=== PATIENT | male | born 1965 | race Caucasian/White ===

== ENCOUNTER 2018-01-08 12:37 | Outpatient (CLI) | payer BC | END 2018-01-08 12:38 | disposition home or self-care (01) | LOC: BICULT 12:37 | PROVIDERS: ATTEND Internal Medicine Gastroenterology | DX: R10.13 Epigastric pain (principal); R30.0 Dysuria; Z90.49 Acquired absence of other specified parts of digestive tract | CPT/HCPCS: 36415; 76705; 80053; 81001; 82150; 82248; 83690; 85025; 87086 ==

== ENCOUNTER 2018-01-09 07:45 | Day surgery (SDC) | payer BC ==
[2018-01-08 17:05] VITALS: BMI 20.5
[2018-01-09] MEDS ORDERED: cefTRIAXone\\ROCEPHIN 1 GM VIAL ONE (09:09)
[2018-01-09] MEDS ORDERED: Sodium Chloride 0.9% 100 ML ONE (09:10)
[2018-01-09] MEDS ORDERED: Indomethacin 50 MG SUPP PR SCH (09:15)
[2018-01-09] MEDS ORDERED: cefTRIAXone\\ROCEPHIN 1 GM in Sodium Chloride 0.9% 100 ML IVPB SCH (09:15)
[2018-01-09] MEDS ORDERED: Lactated Ringer's 2,000 ML IV SCH ×2 (09:15→12:00)
[2018-01-09] MEDS ORDERED: Levofloxacin 500 mg/D5W 100 ml Premix Bag ONE (09:26)
[2018-01-09] MEDS ORDERED: Indomethacin 50 MG SUPP ONE (09:38)
[2018-01-09] MEDS ORDERED: Iothalamate Meglumine 60% 50 ML VIAL FS ONE (09:38)
[2018-01-09] MEDS ORDERED: Fentanyl 100 MCG/2 ML VIAL ONE (09:43)
[2018-01-09] MEDS ORDERED: Midazolam HCl 2 mg/2 ml Vial ONE (09:43)
[2018-01-09] MEDS ORDERED: Famotidine/PF 20 mg/2ml Vial ONE (09:43)
[2018-01-09] MEDS ORDERED: SUGAMMADEX SODIUM 200 MG/2 ML VIAL ONE (10:44)
--- NOTE | 2018-01-09 11:02 | OP ---
DATE OF PROCEDURE: 01/09/2018 PROCEDURE: Endoscopic retrograde cholangiopancreatography with sphincterotomy and balloon stone extr action. PREOPERATIVE DIAGNOSES: Choledocholithiasis. He is status post laparoscopic cholecystectomy a coupl e of weeks ago. He has had marked increase in his LFTs indicative of choledocholithiasis. OPERATIVE NOTE: Informed consent was obtained from the patient. He was given general anesthesia and placed in the prone position. The duodenoscope was advanced easily to the second portion of the duo denum where the ampulla. Unremarkable. It was slightly red and may have passed a stone through the sphincter previously. The common bile duct was easily cannulated on first attempt. Cholangiogram wa s performed, which showed a normal diameter, common bile duct at 5 mm and normal intra and extrahepat ic ducts. The cystic duct stump did fill. There was no evidence of bile leak. There was a filling defect at the distal common bile duct at the ampulla, which appeared to be air. A complete sphincter otomy was performed. An 8-mm balloon was then used to sweep the bile duct. The balloon passes easil y through the sphincterotomy site. A couple of 7 mm black stone fragments were extracted with the pedro xiongon, but otherwise there is no significant retained stone in the bile duct. There was good flow of contrast and bile from the sphincterotomy site. IMPRESSION: 1. Cholangiogram performed showed a distal filling defect that appears to be air. The common bile d uct and intra and extrahepatic ducts were otherwise normal. 2. Sphincterotomy performed. 3. A couple of tiny black pigment stone fragments were removed with the balloon, but no significant stone was present. 4. Good flow of contrast and bile was seen from the sphincterotomy site. There was no evidence of a bile leak. RECOMMENDATIONS: Follow up in GI clinic and recheck LFTs in 1 week.
[2018-01-09] MEDS ORDERED: Ondansetron HCl/PF 4 MG/2 ML Vial ONE (11:32)
[2018-01-09] MEDS ORDERED: Dexamethasone 20 MG/5 ML VIAL ONE (11:32)
[2018-01-09] MEDS ORDERED: Lidocaine 1% PF 5 ML VIAL ONE (11:32)
[2018-01-09] MEDS ORDERED: PROPOFOL 200 MG/20 ML VIAL ONE (11:32)
[2018-01-09] MEDS ORDERED: Glycopyrrolate 0.2 MG/ML 5 ML SYRINGE ONE (11:32)
--- NOTE | 2018-01-09 12:19 | RAD ---
ERCP: CLINICAL INDICATIONS: Right upper quadrant pain. History of cholelithiasis and cholecystitis. TECHNIQUE: Six fluoroscopic images provided. FINDINGS: There is evidence of a cholecystectomy with metallic clips at the distal aspect of the cystic duct. The cystic duct is partially contrast opacified and demonstrates a tortuous course. The contrast opa cified common duct reveals no persistent focal filling defect. Portions of the intrahepatic biliary ductal system reveal no significant abnormality. IMPRESSION: Status post cholecystectomy with a tortuous cystic duct. No persistent focal filling defect of the c ontrast opacified portions are seen. Note is made that contrast opacified bowel is not documented on the provided fluoroscopic images. Re commend correlation with intraoperative findings. POS: [facility]
== END 2018-01-09 11:50 | disposition home or self-care (01) ==
LOC: SDC 07:45
PROVIDERS: ATTEND Internal Medicine Gastroenterology
PROC: 0FC98ZZ Extirpation of Matter from Common Bile Duct, Via Natural or Artificial Opening Endoscopic (ICD-10-PCS; principal; 2018-01-09)
DX: K80.50 Calculus of bile duct without cholangitis or cholecystitis without obstruction (principal); E78.5 Hyperlipidemia, unspecified; E07.9 Disorder of thyroid, unspecified; Z88.2 Allergy status to sulfonamides; Z79.82 Long term (current) use of aspirin; Z79.899 Other long term (current) drug therapy
CPT/HCPCS: 74330; J0696; J1100; J1956; J2001; J2250; J2405; J2704; J3010; J7050; Q9961; S0028

== ENCOUNTER 2023-09-04 08:40 | Emergency (ER) | payer BC ==
[2023-09-04 09:18] LABS: #Basophils 0.1 thou/uL (0.0-0.2); #Eosinphils 0.2 thou/uL (0.0-0.7); #Monocytes 0.6 thou/uL (0.11-0.59); #Neutrophils 6.4 thou/uL (1.40-6.50); %Basophils 1.5 % (0.0-1.0); %Eosinophils 2.5 % (0.0-10.0); %Lymphocytes 17.1 % (21.0-51.0); %Monocytes 7.2 % (0.0-10.0); %Neutrophils 71.4 % (42.0-75.0); Hematocrit 51.2 % (42.0-52.0); Hemoglobin 17.2 g/dL (14.0-18.0); Mean Corpuscular HGB CONC 33.6 g/dL (32.0-36.0); Mean Corpuscular Hemoglobin 29.7 pg (27.0-31.0); Mean Corpuscular Volume 88.3 fl (78.0-98.0); Mean Platelet Volume 10.9 fL (7.4-10.4); Platelet Count 262 10x3/uL (130-400); RBC Distribution Width 12.8 % (11.5-14.5); White Blood Cell (WBC) Count 8.9 10x3/uL (4.8-10.8)
[2023-09-04 10:02] LABS: Troponin I Less than 0.010 ng/mL (< 0.028)
[2023-09-04 11:09] LABS: ALT (SGPT) 17 U/L (8-55); AST (SGOT) 16 U/L (5-34); Albumin 4.3 g/dL (3.5-5.0); Alkaline Phosphatase 83 U/L (40-110); Anion Gap 13 mmol/L (10-20); BUN (Urea Nitrogen) 11 mg/dL (8.4-25.7); Bilirubin, Total 1.9 mg/dL (0.2-1.2); Calc. Creatinine Clearance 0 mL/min (70-130); Calcium 9.7 mg/dL (7.8-10.44); Carbon Dioxide 25 mmol/L (22-29); Chloride 104 mmol/L (98-107); Estimated GFR 100; Globulin 3.2 g/dL (2.4-3.5); Glucose 105 mg/dL (70-105); Lipase 10 U/L (8-78); Potassium 4.1 mmol/L (3.5-5.1); Protein, Total 7.5 g/dL (6.0-8.3); Sodium 138 mmol/L (136-145)
== END 2023-09-04 12:35 | disposition home or self-care (01) ==
LOC: ERS 08:40
DX: R00.2 Palpitations (principal); R07.9 Chest pain, unspecified; E03.9 Hypothyroidism, unspecified; K21.9 Gastro-esophageal reflux disease without esophagitis; I10 Essential (primary) hypertension; Z79.899 Other long term (current) drug therapy
CPT/HCPCS: 71045; 80053; 83690; 83735; 84484; 85025; 93005